=== PATIENT | female | born 1965 | race American Indian/Alaskan Native ===

== ENCOUNTER 2022-02-02 14:03 | Outpatient (CLI) | payer OTHER, SELFPAY ==
--- NOTE | 2022-02-02 14:30 | XR_ITS ---
WS: [id number] DEXA (DUAL ENERGY X-RAY ABSORPTIOMETRY) Bone mineral density was performed using a [employer] machine. HISTORY: osteoporosis COMPARISON: None available. Lumbar spine BMD (L1-L4): 0.969 g/cm2 T score: -1.8 Z score: -1.8 Total hip BMD: Left: 0.910 g/cm2. T score: -0.8 Z score: -0.8 Right: 0.972 g/cm2. T score: -0.3 Z score: -0.3 10 year probability of a major osteoporotic fracture is 7.9%. XR/XR DEXA axial skeleton* [id number] IMPRESSION: OSTEOPENIA based upon the WHO classification for females.
== END 2022-02-02 14:04 | disposition home or self-care (01) ==
PROVIDERS: PCP Family Medicine; Visit Provider Family Medicine
DX: M81.0 Age-related osteoporosis without current pathological fracture (principal); M85.80 Other specified disorders of bone density and structure, unspecified site
CPT/HCPCS: 77080

== ENCOUNTER 2022-02-08 06:00 | Outpatient (RCR) | payer OTHER, SELFPAY | END 2022-02-21 23:59 | disposition home or self-care (01) | LOC: SPT 06:00 | PROVIDERS: PCP Family Medicine; Visit Provider Family Medicine | DX: M54.42 Lumbago with sciatica, left side (principal) | CPT/HCPCS: 97110; 97161 ==

== ENCOUNTER 2022-02-22 06:00 | Outpatient (RCR) | payer OTHER, SELFPAY | END 2022-03-24 23:59 | disposition home or self-care (01) | LOC: SPT 06:00 | PROVIDERS: PCP Family Medicine; Visit Provider Family Medicine | DX: M54.42 Lumbago with sciatica, left side (principal) | CPT/HCPCS: 97110 ==

== ENCOUNTER → 2022-05-11 08:25 | Outpatient (BNVA) | payer OTHER, SELFPAY | PROVIDERS: PCP Family Medicine; Visit Provider Family Medicine Adult Medicine | DX: N39.0 Urinary tract infection, site not specified (principal) | CPT/HCPCS: 81000 ==

== ENCOUNTER → 2022-07-31 09:01 | Outpatient (BNVA) | payer OTHER, SELFPAY | PROVIDERS: PCP Family Medicine; Visit Provider Family Medicine | DX: F32.9 Major depressive disorder, single episode, unspecified (principal); K21.9 Gastro-esophageal reflux disease without esophagitis; E55.9 Vitamin D deficiency, unspecified; E66.9 Obesity, unspecified; Z13.6 Encounter for screening for cardiovascular disorders; Z85.3 Personal history of malignant neoplasm of breast | CPT/HCPCS: 80053; 80061; 82306; 84443; 85025 ==

== ENCOUNTER 2022-08-29 13:57 | Outpatient (CLI) | payer OTHER, SELFPAY ==
--- NOTE | 2022-08-29 14:13 | XRR_ITS ---
PROCEDURE INFORMATION: Exam: XR Lumbosacral Spine Exam date and time: 08/29/2022 2:23 PM Age: 57 years old Clinical indication: Low back pain; Patient HX: HX of breast cancer; Additional info: Chronic low back pain TECHNIQUE: Imaging protocol: Radiologic exam of the lumbosacral spine. Views: 2 or 3 views. COMPARISON: No relevant prior studies available. FINDINGS: Bones/joints: No acute fracture. Normal alignment. Vertebral body and disc heights are preserved. No significant degenerative changes. Soft tissues: Unremarkable. XR/XR lumbar spine 2-3V* [id number] IMPRESSION: No acute findings.
== END 2022-08-29 13:58 | disposition home or self-care (01) ==
PROVIDERS: PCP Family Medicine; Visit Provider Family Medicine
DX: G89.29 Other chronic pain; M54.50 Low back pain, unspecified; Z85.3 Personal history of malignant neoplasm of breast
CPT/HCPCS: 72100

== ENCOUNTER 2022-10-04 08:15 | Oncology outpatient (recurring) (ONCR) | payer OTHER, SELFPAY | END 2022-10-22 23:59 | disposition home or self-care (01) | PROVIDERS: PCP Family Medicine; Visit Provider Internal Medicine Hematology & Oncology | DX: Z53.9 Procedure and treatment not carried out, unspecified reason (principal) ==

== ENCOUNTER 2022-11-15 07:22 | Oncology outpatient (recurring) (ONCR) | payer OTHER, SELFPAY ==
[2022-11-15 07:23] VITALS: BP 147/86; PULSE 106; RESP 18; TEMP 36.7; O2SAT 100
[2022-11-15 07:42] LABS: Basophils # 0.1 10^3/uL (0.0-0.1); Basophils % 0.7 %; Eosinophils # 0.2 10^3/uL (0.0-0.8); Eosinophils % 3.4 %; Hematocrit 41.6 % (36-47); Lymphocytes # 1.3 10^3/uL (0.8-4.8); Mean Corpuscular Hemoglobin 28.7 pg (27-33); Mean Corpuscular Volume 89.7 fl (85-98); Mean Platelet Volume 9.6 fL (7.4-10.4); Monocytes # 0.4 10^3/uL (0.2-0.9); Monocytes % 5.7 %; Neutrophils # 4.83 10^3/uL (1.8-7.7); Neutrophils % 70.6 %; Nucleated Red Blood Cells % 0 %; Platelet Count 258 10^3/cmm (157-399); Red Blood Count 4.64 10^6/uL (3.85-5.65); Red Cell Distribution Width 13.7 % (12.1-15.1); White Blood Count 6.84 10^3/uL (3.29-11.43)
[2022-11-15 08:02] LABS: Alanine Aminotransferase 20 U/L (0-33); Albumin Level 4.2 g/dL (3.5-5.2); Alkaline Phosphatase 121 U/L (35-105); Anion Gap 16.2 (5-19); Aspartate Amino Transferase 21 U/L (0-32); Blood Urea Nitrogen 17 mg/dL (6-20); Calcium 8.9 mg/dL (8.5-10.5); Carbon Dioxide 22 mmol/L (22-29); Chloride 107 mmol/L (98-107); Globulin 2.6 g/dL (1.3-4.6); Glomerular Filtration Rate 85.6 mL/min (90-130); Glucose 137 mg/dL (65-115); Osmolality Calculated 296 mOsm/kg (285-295); Potassium 4.2 mmol/L (3.5-5.1); Sodium 141 mmol/L (136-145); Total Bilirubin 0.3 mg/dL (0.15-1.2); Total Protein 6.8 g/dL (6.6-8.7)
== END 2022-11-22 23:59 | disposition home or self-care (01) ==
PROVIDERS: Internal Medicine Medical Oncology; PCP Family Medicine; Visit Provider Internal Medicine Hematology & Oncology
DX: C50.919 Malignant neoplasm of unspecified site of unspecified female breast (principal); C50.811 Malignant neoplasm of overlapping sites of right female breast; Z17.0 Estrogen receptor positive status [ER+]
CPT/HCPCS: 36415; 80053; 85025

== ENCOUNTER 2022-12-06 06:00 | Outpatient (RCR) | payer OTHER, SELFPAY | END 2022-12-22 23:59 | disposition home or self-care (01) | LOC: SPT 06:00 | PROVIDERS: PCP Family Medicine; Visit Provider Family Medicine | DX: M54.50 Low back pain, unspecified (principal); G89.29 Other chronic pain | CPT/HCPCS: 97110; 97161 ==

== ENCOUNTER 2023-01-14 08:58 | Outpatient (CLI) | payer OTHER, SELFPAY ==
--- NOTE | 2023-01-14 09:02 | MM_ITS ---
WS: [id number] DIAGNOSTIC BILATERAL DIGITAL BREAST TOMOSYNTHESIS MAMMOGRAPHY WITH CAD HISTORY: history of breast cancer COMPARISON: 05/30/2020 and 05/27/2019 TECHNIQUE: Bilateral craniocaudad, mediolateral oblique, and mediolateral views are submitted with to mosynthjessica and SM. Computer aided detection utilized. Breast composition: There are scattered areas of fibroglandular density. Postsurgical changes with sc arring and volume loss in the central RIGHT breast. Similar in appearance to prior studies. No mass i dentified. No calcifications of any concern. There are benign calcifications in each breast. IMPRESSION: MM/[place] [id number] BI-RADS: 2-Benign FOLLOW UP: 1 Year Follow-up
== END 2023-01-14 08:59 | disposition home or self-care (01) ==
LOC: RAD 08:59
PROVIDERS: PCP Family Medicine; Visit Provider Family Medicine
DX: Z85.3 Personal history of malignant neoplasm of breast (principal)
CPT/HCPCS: 77062; G0279

== ENCOUNTER → 2023-02-01 08:38 | Outpatient (BNVA) | payer OTHER, SELFPAY | PROVIDERS: PCP Family Medicine; Visit Provider Family Medicine | DX: M15.9 Polyosteoarthritis, unspecified (principal); Z01.419 Encounter for gynecological examination (general) (routine) without abnormal findings | CPT/HCPCS: 88175 ==

== ENCOUNTER 2023-05-14 08:02 | Oncology outpatient (recurring) (ONCR) | payer OTHER, SELFPAY ==
[2023-05-14 08:21] LABS: Basophils % 0.8 %; Eosinophils # 0.2 10^3/uL (0.0-0.8); Eosinophils % 3.6 %; Hematocrit 41.6 % (36-47); Lymphocytes # 1.2 10^3/uL (0.8-4.8); Lymphocytes % 26.1 %; Mean Corpuscular HGB Conc 31.5 g/dL (30-55); Mean Corpuscular Hemoglobin 28.4 pg (27-33); Mean Platelet Volume 9.5 fL (7.4-10.4); Monocytes # 0.4 10^3/uL (0.2-0.9); Monocytes % 9.1 %; Neutrophils # 2.83 10^3/uL (1.8-7.7); Neutrophils % 60.2 %; Nucleated Red Blood Cells % 0 %; Platelet Count 241 10^3/cmm (157-399); Red Blood Count 4.62 10^6/uL (3.85-5.65); Red Cell Distribution Width 13.4 % (12.1-15.1); White Blood Count 4.71 10^3/uL (3.29-11.43)
[2023-05-14 08:45] LABS: Alanine Aminotransferase 17 U/L (0-33); Albumin Level 3.9 g/dL (3.5-5.2); Alkaline Phosphatase 122 U/L (35-105); Anion Gap 15.9 (5-19); Aspartate Amino Transferase 20 U/L (0-32); Blood Urea Nitrogen 22 mg/dL (8-23); Calcium 8.6 mg/dL (8.5-10.5); Carbon Dioxide 23 mmol/L (22-29); Chloride 108 mmol/L (98-107); Creatinine Clr Calc Pharmacy 97.6645; Glomerular Filtration Rate 73.2 mL/min (90-130); Glucose 102 mg/dL (65-115); Osmolality Calculated 298 mOsm/kg (285-295); Potassium 4.9 mmol/L (3.5-5.1); Sodium 142 mmol/L (136-145); Total Bilirubin 0.2 mg/dL (0.15-1.2); Total Protein 6.9 g/dL (6.6-8.7)
[2023-05-14 09:57] LABS: 25 Hydroxy Vitamin D 42 ng/mL (30-100)
== END 2023-05-23 23:59 | disposition home or self-care (01) ==
PROVIDERS: Internal Medicine Medical Oncology; Nurse Practitioner Family; PCP Family Medicine; Visit Provider Internal Medicine Medical Oncology
DX: Z08 Encounter for follow-up examination after completed treatment for malignant neoplasm (principal); Z85.3 Personal history of malignant neoplasm of breast; M81.8 Other osteoporosis without current pathological fracture; Z79.899 Other long term (current) drug therapy; Z79.818 Long term (current) use of other agents affecting estrogen receptors and estrogen levels
CPT/HCPCS: 36415; 80053; 82306; 85025

== ENCOUNTER 2023-06-14 09:38 | Emergency (ER) | payer OTHER, SELFPAY ==
--- NOTE | 2023-06-14 09:44 | XR_ITS ---
WS: [email or web address] Cervical spine, 4 views, 06/14/2023 Clinical Data: neck pain Comparison: None. Findings: No compression fractures are seen. There is degenerative disc narrowing at C4-C5 and probab ly C5-C6 with anterior and posterior osteophytes. The patient's shoulders obscure detail on the later al images. There is no prevertebral soft tissue swelling. The odontoid is unremarkable. The soft tis sues of the neck and the lung apices are normal. The patient has had mandibular surgery and surgery o n both maxillary sinuses with small surgical screws remaining. Impression: Degenerative disc narrowing at C4-C5 and probably C5-C6 with small anterior and posterior osteophytes .
--- NOTE | 2023-06-14 09:44 | XR_ITS ---
WS: [email or web address] Left wrist, 3 views, 06/14/2023 Clinical Data: pain Comparison: None. Findings: There is a fracture of the distal left ulna. There is irregularity of the distal left radius and ther e may be a cortical fracture. The carpal bones are intact. There is minimal soft tissue swelling abou t the left wrist Impression: 1. Fracture of the distal left ulna. 2. Possible cortical fracture of distal left radius.
--- NOTE | 2023-06-14 09:44 | XR_ITS ---
WS: [email or web address] Left hand, 3 views, 06/14/2023 Clinical Data: pain Comparison: None. Findings: There is a fracture of the distal left ulna. There is irregularity of the distal right radius and the re may be a cortical fracture. The metacarpals and phalanges are not remarkable. Impression: 1. Fracture of distal left ulna. 2. Possible cortical fracture of distal left radius.
--- NOTE | 2023-06-14 09:45 | CTR_ITS ---
PROCEDURE INFORMATION: Exam: CT Head Without Contrast Exam date and time: 06/14/2023 10:30 AM Age: 58 years old Clinical indication: Injury or trauma; Fall; Blunt trauma (contusions or hematomas); Prior surgery; Surgery date: 6+ months; Surgery type: Jaw TECHNIQUE: Imaging protocol: Computed tomography of the head without contrast. Radiation optimization: All CT scans at this facility use at least one of these dose optimization techniques: automated exposure control; mA and/or kV adjustment per patient size (includes targeted exams where dose is matched to clinical indication); or iterative reconstruction. COMPARISON: CR XR cervical spine 3V* [id number] 06/14/2023 10:04 AM RADIATION DOSE METRICS: Total DLP (mGy-cm): 1107.49 FINDINGS: Brain: Normal. No hemorrhage. Unremarkable white matter. No mass effect. Cerebral ventricles: No ventriculomegaly. Paranasal sinuses: Visualized sinuses are unremarkable. No fluid levels. Mastoid air cells: Visualized mastoid air cells are well aerated. Bones/joints: Unremarkable. No acute fracture. Soft tissues: Unremarkable. CT/CT head wo con* [id number] IMPRESSION: No acute intracranial abnormality.
--- NOTE | 2023-06-14 10:14 | W.ED.HEATRA ---
HPI - Head Injury General: Chief complaint: Head Injury Stated complaint: fall Time Seen by Provider: 06/14/23 09:42 Source: patient Mode of arrival: ambulatory History of Present Illness: 58-year-old female presents to the emergency room with complaint of a fall. 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 She is complaining of pain in her left wrist is an abrasion on the left side of her forehead she denies any neck pain there is no loss consciousness she was able to stand with the assistance of several bystanders and able to ambulate she denies pain or hips pelvis or knee. No other injury. Other Injuries: none Associated symptoms: Deny amnesia, confusion, nausea, neck pain, numbness, syncope, tingling, vertigo, visual changes, vomiting or weakness Review of Systems Const: Denies: fever(s) or chills Card: Denies: chest pain or syncope Resp: Denies: dyspnea GI: Denies: abdominal pain, nausea or vomiting : Denies: dysuria, urinary frequency or urinary urgency Musc: Denies: neck pain or back pain Skin/Breast: Denies: rash Neuro: Denies: vertigo or confusion PFSH ED PFSH: Medical History Urinary tract infection Atopic dermatitis Major depression Migraines Osteoarthritis of multiple joints GERD (gastroesophageal reflux disease) Osteoporosis History of breast cancer Right Surgical History History of tonsillectomy and adenoidectomy History of laparoscopic cholecystectomy History of mandibular surgery History of esophagogastroduodenoscopy (EGD) History of colonoscopy Repeat in 2024 History of partial mastectomy of right breast Social History Smoking and tobacco/nicotine status: never used tobacco/nicotine Physical Exam Const: COMMON NORMALS: no acute distress GENERAL APPEARANCE: cooperative and comfortable ORIENTATION/CONSCIOUSNESS: Yes awake, Yes oriented to person, Yes oriented to place and Yes oriented to time HENMT: COMMON NORMALS: normocephalic, atraumatic and hearing grossly normal bilaterally HEAD & SCALP: normocephalic and atraumatic Resp: COMMON NORMALS: normal respiratory effort, No retractions, No use of accessory muscles and clear to auscultation bilaterally AUSCULTATION: clear to auscultation bilaterally Cardio: COMMON NORMALS: regular rate, regular rhythm and No murmurs present (Cardio) RATE: regular rate RHYTHM: regular rhythm GI: COMMON NORMALS: Soft to palpation and No hepatosplenomegaly present AUSCULTATION: Yes normoactive bowel sounds PALPATION: Yes Soft to palpation, No Tenderness to palpation present (GI), No Guarding due to palpation present (GI) and Yes No hepatosplenomegaly present Extremity: COMMON NORMALS: normal to inspection, capillary refill normal, no clubbing, cyanosis or edema, no calf tenderness and no pedal edema Neuro: SENSORIUM/ORIENTATION: Yes oriented to person, Yes oriented to place and Yes oriented to time Skin: COMMON NORMALS: no rashes or lesions noted GENERAL SKIN EXAM: no rashes or lesions noted Course Vital Signs: Vital signs: Vital Signs Pulse Rate 95 06/14/23 11:47 Blood Pressure 138/92 06/14/23 11:47 Pulse Oximetry 97 06/14/23 11:47 MDM - Head Injury Medcial Decision Making Close distal fibula fracture. Splinted posterior splint refer to podiatry. Pain medication as needed elevate and ice. Imaging reviewed with the patient. Medical Records I reviewed the patient's medical records. Lab Data I reviewed the patient's lab results. Radiology Impressions Head CT 06/14/23 09:45 IMPRESSION: No acute intracranial abnormality. All radiology interpretation(s) finalized by discharge Discharge Plan Discharge Patient Disposition: Home Clinical Impression: Closed fracture distal radius and ulna Condition: Stable Prescriptions: New hydrocodone-acetaminophen 5-325 mg tablet 1 tab PO Q6H PRN (Reason: pain) Qty: 10 0RF No Action magnesium 200 mg tablet 400 mg PO DAILY calcium carbonate 260 mg calcium (650 mg) tablet,chewable 260 mg PO DAILY diphenhydramine HCl [Benadryl] 25 mg capsule 25 mg PO TID PRN (Reason: Allergy Symptoms) sennosides [Senokot] 8.6 mg tablet 8.6 mg PO DAILY PRN (Reason: Constipation) Eucrisa 2 % ointment 1 applic topical BID PRN (Reason: rash) lansoprazole [Prevacid] 30 mg capsule,delayed release(DR/EC) 30 mg PO DAILY Qty: 90 1RF (DME) Cockup splint See Rx Instructions .Route .MEDSUPPLY Qty: 1 0RF Rx Instructions: As directed vitamin B complex Capsule 1 cap PO DAILY loratadine [Claritin] 10 mg tablet 10 mg PO DAILY Probiotic 3 billion cell capsule See Rx Instructions PO DAILY Rx Instructions: dosage unknown orally daily; administer with a meal Zyrtec 10 mg capsule 10 mg PO DAILY PRN (Reason: Allergy Symptoms) letrozole 2.5 mg tablet 2.5 mg PO DAILY Qty: 28 12RF sumatriptan succinate 50 mg tablet See Rx Instructions .ROUTE .COMPLEX Qty: 14 2RF Dose Instruction: TAKE ONE TABLET BY MOUTH EVERY 2 HOURS as needed for migraine headache * DO not exceed FOUR doses PER 24 hours * Rx Instructions: TAKE ONE TABLET BY MOUTH EVERY 2 HOURS as needed for migraine headache * DO not exceed FOUR doses PER 24 hours * albuterol sulfate 90 mcg/actuation Hfa Aerosol Inhaler 2 puff INHALATION Q6H PRN (Reason: Shortness Of Breath Or Wheezing) meloxicam 15 mg tablet 15 mg PO DAILY sertraline 100 mg tablet 200 mg PO DAILY topiramate 50 mg tablet 50 mg PO BEDTIME Discharge Orders: Discharge ED (Routine); Ordered 06/14/23 Ordered By: Kranthi Guzman Referrals: Kesha Santana DO [Primary Care Provider] - Discharge Diet: Usual diet Discharge Activity: Limit activity as instructed Patient Instructions: Opioid Safety, Pain Management Activity Restrictions/Additional Instructions: Thank you for choosing [facility] for your healthcare needs today. Please realize this is an emergency room and that we are providing you with a medical screening exam and this may not be complete and all inclusive of all the testing and or work up that you may need to determine your ailment or severity of your illness. It is very important that you follow up as instructed or that you return to the Emergency Department should you have concerns or if your condition changes or worsens in any way. You were seen today after a fall. CT of your head and x-rays of your neck were normal your x-ray of your left wrist did show a distal radius and ulna fracture. Recommend you keep the splint on and use the sling until you follow-up with orthopedics next week. Case management will make arrangements for that follow-up appointment. You can use pain medicine prescribed as needed. Ice and elevation will help the fracture discomfort. Coding Level of Care Code ED Rn Internal Medicine for Jorge A Choi
--- NOTE | 2023-06-14 10:50 | DCPLANNER ---
A message was sent to ortho on 06/14/23 at 0650. [facility] to contact patient with appt
[2023-06-14] MEDS: tetanus-dipt-pertussis 0.5 mL SDV IM (11:29)
[2023-06-14 11:47] VITALS: BP 138/92; PULSE 95; O2SAT 97
== END 2023-06-14 11:50 | disposition home or self-care (01) ==
PROVIDERS: Emergency Provider Family Medicine; PCP Family Medicine
DX: S52.502A Unspecified fracture of the lower end of left radius, initial encounter for closed fracture (principal); S52.602A Unspecified fracture of lower end of left ulna, initial encounter for closed fracture; W01.0XXA Fall on same level from slipping, tripping and stumbling without subsequent striking against object, initial encounter; Z85.3 Personal history of malignant neoplasm of breast; Z23 Encounter for immunization
CPT/HCPCS: 29125; 70450; 72040; 73110; 73130; 90471; 90715; 99284

== ENCOUNTER 2023-06-18 16:38 | Outpatient (CLI) | payer SELFPAY | END 2023-06-18 16:39 | disposition home or self-care (01) | LOC: SPT 16:47 | PROVIDERS: PCP Family Medicine; Visit Provider Orthopaedic Surgery | DX: Z46.89 Encounter for fitting and adjustment of other specified devices (principal); S52.502D Unspecified fracture of the lower end of left radius, subsequent encounter for closed fracture with routine healing; X58.XXXD Exposure to other specified factors, subsequent encounter | CPT/HCPCS: 97760; L3908 ==

== ENCOUNTER → 2023-07-02 08:51 | Outpatient (BNVA) | payer OTHER, SELFPAY | PROVIDERS: PCP Family Medicine; Visit Provider Orthopaedic Surgery | DX: S52.532D Colles' fracture of left radius, subsequent encounter for closed fracture with routine healing; W19.XXXD Unspecified fall, subsequent encounter | CPT/HCPCS: 73110 ==

== ENCOUNTER → 2023-07-25 08:28 | Outpatient (BNVA) | payer OTHER, SELFPAY | PROVIDERS: PCP Family Medicine; Visit Provider Orthopaedic Surgery | DX: S52.532D Colles' fracture of left radius, subsequent encounter for closed fracture with routine healing (principal); W19.XXXD Unspecified fall, subsequent encounter | CPT/HCPCS: 73110 ==

== ENCOUNTER → 2023-08-22 13:00 | Outpatient (BNVA) | payer SELFPAY | PROVIDERS: PCP Family Medicine; Visit Provider Orthopaedic Surgery | DX: S52.532D Colles' fracture of left radius, subsequent encounter for closed fracture with routine healing (principal); W19.XXXD Unspecified fall, subsequent encounter | CPT/HCPCS: 73110 ==